=== PATIENT | female | born 1975 | race African-American/Black ===

== ENCOUNTER 2020-10-29 22:03 | Emergency (ER) | payer MEDICAID ==
[~2020-10-29] VITALS: Ht 157.5 cm; Wt 73.4 kg
[2020-10-29] MEDS ORDERED: MORPHINE SULFATE 4 MG/ML, 1ML ONE ×2 (22:39→23:30)
[2020-10-29] MEDS ORDERED: ONDANSETRON 2MG/ML, 2ML ONE (22:39)
[2020-10-29] MEDS: MORPHINE SULFATE 4 MG/ML, 1ML IVPush PRN ×2 (22:52→23:32)
[2020-10-29 22:54] LABS: BASOPHILS % (AUTO) 1 % (0-1); EOSINOPHILS % (AUTO) 2 % (1-7); LYMPHOCYTES % (AUTO) 30 % (22-44); MD NO; MEAN CORPUSCULAR HEMOGLOBIN 22.3 pg (27.0-34.8); MONOCYTES % (AUTO) 8 % (2-9); NEUTROPHILS % (AUTO) 60 % (42-75); PLATELET COUNT 329 x10^3/uL (130-400); RED BLOOD COUNT 4.21 x10^6/uL (3.82-5.3); RED CELL DISTRIBUTION WIDTH 18.7 % (9.6-15.2)
--- NOTE | 2020-10-29 22:57 | NUR ---
"I AM HAVING A LUPUS FLARE UP." PT REPORTS PAIN/SOB/LEG PAIN
[2020-10-29] MEDS ORDERED: SODIUM CHLORIDE 0.9% 1,000ML IVBOLUS ONE (23:00)
[2020-10-29] MEDS ORDERED: SODIUM CHLORIDE FLUSH 10ML SYR IVF ONE (23:00)
[2020-10-29] MEDS ORDERED: ONDANSETRON 2MG/ML, 2ML IVPush ONE (23:00)
[2020-10-29 23:05] LABS: ALANINE AMINOTRANSFERASE 18 U/L (12-78); ALBUMIN 3.6 g/dL (3.4-5.0); ANION GAP 8 mmol/L (5-15); CALCIUM 8.3 mg/dL (8.5-10.1); CHLORIDE 107 mmol/L (98-107); CREATININE 0.79 mg/dL (0.55-1.02)
[2020-10-29 23:09] LABS: ALKALINE PHOSPHATASE 116 U/L (45-117); BILIRUBIN,TOTAL 0.5 mg/dL (0.2-1.0); TOTAL PROTEIN 8.1 g/dL (6.4-8.2)
--- NOTE | 2020-10-29 23:34 | NUR ---
PT STATES PAIN CONTINUES SECOND DOSE OF MS GIVEN PER ORDER
[2020-10-29 23:50] LABS: MICROSCOPIC NOT IND
[2020-10-30] MEDS ORDERED: METHOCARBAMOL 750 MG TABLET ONE (00:06)
--- NOTE | 2020-10-30 00:08 | NUR ---
MEDICATED PER [facility] V[facility], PT IN NAD
[2020-10-30 00:09] VITALS: BP 130/85
[2020-10-30] MEDS ORDERED: METHOCARBAMOL 750 MG TABLET PO ONE (00:30)
== END 2020-10-30 00:22 | disposition home or self-care (01) ==
LOC: ED 10-30
DX: D53.9 Nutritional anemia, unspecified (principal); M79.662 Pain in left lower leg; M79.661 Pain in right lower leg; R07.89 Other chest pain; R06.02 Shortness of breath; M79.10 Myalgia, unspecified site; R00.0 Tachycardia, unspecified
CPT/HCPCS: 36415; 80053; 81003; 84703; 85025; 85651; 93005; 96374; 96375; 96376; 99284; J2270; J2405; J7030

== ENCOUNTER 2021-03-05 16:59 | Emergency (ER) | payer MEDICAID ==
[~2021-03-05] VITALS: Ht 167.6 cm; Wt 70.1 kg
[2021-03-05 17:52] LABS: MEAN CORPUSCULAR HEMOGLOBIN 22.7 pg (27.0-34.8); MEAN CORPUSCULAR HGB CONC 30.7 g/dL (32.4-35.8); MEAN PLATELET VOLUME 8.5 fL (7.4-10.4); PLATELET COUNT 458 x10^3/uL (130-400); RED BLOOD COUNT 4.18 x10^6/uL (3.82-5.3); RED CELL DISTRIBUTION WIDTH 18.9 % (9.6-15.2)
[2021-03-05 18:05] LABS: ALANINE AMINOTRANSFERASE 32 U/L (12-78); ALBUMIN 3.2 g/dL (3.4-5.0); ANION GAP 6 mmol/L (5-15); CALCIUM 8.8 mg/dL (8.5-10.1); CHLORIDE 106 mmol/L (98-107)
[2021-03-05 18:10] LABS: ALKALINE PHOSPHATASE 111 U/L (45-117); BILIRUBIN,TOTAL 0.3 mg/dL (0.2-1.0); CREATININE 0.93 mg/dL (0.55-1.02); TOTAL PROTEIN 7.6 g/dL (6.4-8.2); TROPONIN I < 0.015 ng/mL (0.000-0.045)
[2021-03-05 18:48] LABS: LYMPH#(MANUAL) 2.76 x10^3/uL (1-3.4); LYMPHS% (MANUAL) 13 % (22-44); METAMYELOCYTES# (MANUAL) 0.21 x10^3/uL (0-0); METAMYELOCYTES% (MANUAL) 1 % (0-1); MONOS#(MANUAL) 0.85 x10^3/uL (0.3-2.7); MONOS% (MANUAL) 4 % (2-9); SEG#(MANUAL) 17.38 x10^3/uL (1.8-6.8); SEGS% (MANUAL) 82 % (42-75)
[2021-03-05 18:49] LABS: <PLATELET ESTIMATE> INCREASED; <PLT MORPHOLOGY> NORMAL PLT MORPH; HYPOCHROMIA 1+
[2021-03-05 18:50] LABS: ANISOCYTOSIS 1+; MICROCYTOSIS 1+
[2021-03-05] MEDS ORDERED: ONDANSETRON 2MG/ML, 2ML ONE (20:27)
[2021-03-05] MEDS ORDERED: MORPHINE SULFATE 4 MG/ML, 1ML ONE (20:27)
[2021-03-05] MEDS ORDERED: MORPHINE SULFATE 4 MG/ML, 1ML IVPush ONE (20:30)
[2021-03-05] MEDS ORDERED: SODIUM CHLORIDE 0.9% 1,000ML IVBOLUS ONE (20:30)
[2021-03-05] MEDS ORDERED: SODIUM CHLORIDE FLUSH 10ML SYR IVF ONE (20:30)
[2021-03-05] MEDS ORDERED: ONDANSETRON 2MG/ML, 2ML IVPush ONE (20:30)
[2021-03-05 21:06] LABS: MICROSCOPIC NOT IND
[2021-03-05 22:35] VITALS: BP 123/76
[2021-03-05] MEDS ORDERED: HYDROcodone/APAP 5/325 TABLET ONE (22:51)
[2021-03-05] MEDS ORDERED: HYDROcodone/APAP 5/325 TABLET PO ONE (23:00)
== END 2021-03-05 23:11 | disposition home or self-care (01) ==
LOC: ED 22:45
DX: M79.10 Myalgia, unspecified site (principal); R07.9 Chest pain, unspecified; D72.829 Elevated white blood cell count, unspecified; R51.9 Headache, unspecified; R00.0 Tachycardia, unspecified
CPT/HCPCS: 36415; 71045; 80053; 81003; 83605; 84145; 84484; 84703; 85025; 87040; 93005; 96361; 96374; 96375; 99285; J2270; J2405; J7030

== ENCOUNTER 2021-05-07 13:58 | Emergency (ER) | payer MEDICAID ==
[~2021-05-07] VITALS: Ht 157.5 cm; Wt 71.8 kg
--- NOTE | 2021-05-07 14:14 | NUR ---
PT SWABBED FOR COVID IN TRIAGE. EKG PERFORMED IN TRIAGE.
[2021-05-07 14:48] LABS: BASOPHILS % (AUTO) 1 % (0-1); EOSINOPHILS % (AUTO) 2 % (1-7); LYMPHOCYTES % (AUTO) 24 % (22-44); MEAN CORPUSCULAR HEMOGLOBIN 21.5 pg (27.0-34.8); MEAN PLATELET VOLUME 8.3 fL (7.4-10.4); MONOCYTES % (AUTO) 6 % (2-9); NEUTROPHILS % (AUTO) 68 % (42-75); PLATELET COUNT 321 x10^3/uL (130-400); RED BLOOD COUNT 4.36 x10^6/uL (3.82-5.3); RED CELL DISTRIBUTION WIDTH 18.3 % (9.6-15.2)
[2021-05-07 14:58] LABS: ALBUMIN 3.6 g/dL (3.4-5.0); ANION GAP 7 mmol/L (5-15); CALCIUM 8.9 mg/dL (8.5-10.1); CHLORIDE 110 mmol/L (98-107)
[2021-05-07 14:59] LABS: MEAN CORPUSCULAR HGB CONC 29.8 g/dL (32.4-35.8)
[2021-05-07 15:04] LABS: CREATININE 0.81 mg/dL (0.55-1.02)
[2021-05-07 15:06] LABS: TROPONIN I < 0.015 ng/mL (0.000-0.045)
--- NOTE | 2021-05-07 17:29 | NUR ---
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
[2021-05-07] MEDS ORDERED: SODIUM CHLORIDE FLUSH 10ML SYR IVF ONE (18:00)
[2021-05-07] MEDS ORDERED: SODIUM CHLORIDE 0.9% 1,000ML IVBOLUS ONE (18:00)
[2021-05-07] MEDS ORDERED: ONDANSETRON 2MG/ML, 2ML IVPush ONE (18:00)
[2021-05-07] MEDS ORDERED: MORPHINE SULFATE 4 MG/ML, 1ML IVPush PRN (18:00)
[2021-05-07] MEDS ORDERED: MORPHINE SULFATE 4 MG/ML, 1ML ONE (19:04)
[2021-05-07] MEDS ORDERED: ONDANSETRON 2MG/ML, 2ML ONE (19:04)
[2021-05-07 19:51] VITALS: BP 145/90
== END 2021-05-07 20:50 | disposition home or self-care (01) ==
LOC: ED 19:42
DX: R07.89 Other chest pain (principal); M79.661 Pain in right lower leg; R09.81 Nasal congestion; R06.02 Shortness of breath; Z20.822 Contact with and (suspected) exposure to COVID-19
CPT/HCPCS: 36415; 71045; 80048; 82040; 84484; 85025; 93005; 96361; 96374; 96375; 99285; J2270; J2405; J7030; U0003; U0005